=== PATIENT | female | born 1950 | race Caucasian/White ===

== ENCOUNTER 2019-02-23 15:45 | Inpatient (IN) | payer MEDICARE ==
[~2019-02-23] VITALS: Ht 157.4 cm; Wt 61.7 kg
--- NOTE | ~2019-02-23 | EKG ---
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
--- NOTE | ~2019-02-23 | EKG ---
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
--- NOTE | ~2019-02-23 | EKG ---
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
[~2019-02-23 15:45] MED LIST: NITROFURANTOIN100 M9 PO
[2019-02-23 15:47] VITALS: BP 143/61
--- NOTE | 2019-02-23 15:59 | NUR ---
PATIENT DENIES ANY WOUNDS ON BODY A&O4.
[2019-02-23 16:22] VITALS: BP 132/42
[2019-02-23 16:24] LABS: BASO % 0.2 % (0.0-1.0); HEMATOCRIT 39.7 % (37.0-47.0); HEMOGLOBIN 12.8 g/dl (12.0-16.0); LYMPH # 0.5 10*3/uL (1.3-4.4); LYMPH % 8.3 % (27.0-41.0); MEAN CELL VOLUME 86.1 fl (81.0-99.0); MEAN CORPUSCULAR HGB 27.8 pg (27.0-31.0); MEAN CORPUSCULAR HGB CONC 32.2 g/dl (33.0-37.0); MEAN PLATELET VOLUME 10.4 fl (9.6-12.3); MONO # 0.6 10*3/uL (0.1-1.0); MONO % 9.7 % (3.0-9.0); NEUT # 4.7 10*3/uL (2.3-7.9); NEUT % 81.5 % (47.0-73.0); PLATELET COUNT AUTOMATED 147 10*3/uL (130-400); RED BLOOD COUNT 4.61 10*6/uL (4.10-5.10); RED CELL DISTRI WIDTH 13.5 % (0-14.5); WHITE BLOOD COUNT 5.8 10*3/uL (4.8-10.8)
[2019-02-23 16:34] LABS: BILIRUBIN 3+ (NEGATIVE); BLOOD NEGATIVE (NEGATIVE); CLARITY CLOUDY (CLEAR); COLOR ORANGE (YELLOW); GLUCOSE TRACE (NEGATIVE); KETONE TRACE (NEGATIVE); NITRITE POSITIVE (NEGATIVE); PH 5.5 (5.0-9.0); SPECIFIC GRAVITY 1.025 (1.005-1.030)
[2019-02-23 16:35] LABS: ACT PARTIAL THROMBO TIME 38.3 SECONDS (20.0-32.1)
[2019-02-23 16:37] LABS: LEUKO ESTERASE TRACE (NEGATIVE)
[2019-02-23 16:46] LABS: ALBUMIN 3.1 gm/dl (3.1-4.5); ALKALINE PHOSPHATASE 316 U/L (45-117); BUN 20 mg/dl (7-24); CHLORIDE 104 mmol/L (98-107); CREATININE 1.14 mg/dL (0.55-1.02); POTASSIUM 3.4 mmol/L (3.5-5.1); SGOT/AST 127 IU/L (3-35); SGPT/ALT 213 U/L (12-78); SODIUM 138 mmol/L (136-145); TOTAL PROTEIN 6.9 gm/dL (6.4-8.2)
[2019-02-23 16:48] LABS: TROPONIN I < 0.015 ng/ml (<0.045)
[2019-02-23 17:30] LABS: BACTERIA 3+; WBC 31-40 wbc/hpf (0-5)
[2019-02-23 17:31] LABS: EPITHELIAL CELLS 15-20
[2019-02-23 17:52] VITALS: BP 144/66
[2019-02-23 18:15] VITALS: BP 143/77
--- NOTE | 2019-02-23 18:22 | NUR ---
PATIENT REPORT GIVEN TO AMINTA CARRASCO AT BEDSIDE. NO CHANGE IN PATIENT CONDITION.
[2019-02-23] MEDS ORDERED: SERTRALINE HYD100 MG PO (18:23)
[2019-02-23] MEDS ORDERED: MOTRIN IB200 M1 PO (18:24)
[2019-02-23] MEDS ORDERED: MONTELUKAST SOD10 MG PO (18:25)
[2019-02-23] MEDS ORDERED: CETIRIZINE HYDR10 MG PO (18:25)
--- NOTE | 2019-02-23 18:25 | NUR ---
A 68, admitted to 5E, under the services of YANETH Camargo DO with a diagnosis of ELEVATED BILIRUBIN. Chief complaint is COUGH, NECK PAIN. Patient arrived via stretcher from ER. Monitor applied. Initial assessment completed. Vital signs taken and recorded. See assessment for past medical history, medications and allergies. Patient and/or family oriented to unit. [facility] visitation policy reviewed. Clothing/patient valuable form completed. AMINTA CLANCY
--- NOTE | 2019-02-23 18:35 | NUR ---
DR. DICKERSON AWARE THAT PATIENT HAS ARRIVED IN ROOM AND THAT HOME MEDICTAIONS ARE UPDATED
--- NOTE | 2019-02-23 19:12 | NUR ---
PT COMPLAIN OF NECK PAIN, TYLENOL GIVEN
--- NOTE | 2019-02-23 19:52 | NUR ---
PATIENT MEDICATED FOR C/O NAUSEA. WILL MONITOR
[2019-02-23 20:00] VITALS: BP 153/61
--- NOTE | 2019-02-23 20:52 | NUR ---
ZOFRAN EFFECTIVE FOR NAUSEA
--- NOTE | 2019-02-23 23:12 | NUR ---
PATIENT MEDICATED WITH TYLENOL FOR C/O HEADACHE. WILL MONITOR
[2019-02-24] VITALS: BP 132/56
--- NOTE | 2019-02-24 00:12 | NUR ---
TYLENOL APPEARS EFFECTIVE. RESTING QUIETLY IN BED, EYES CLOSED. CALL LIGHT WITHIN REACH
[2019-02-24 06:19] LABS: BASO % 0.1 % (0.0-1.0); EOS % 0.1 % (1.0-4.0); HEMATOCRIT 35.6 % (37.0-47.0); HEMOGLOBIN 11.6 g/dl (12.0-16.0); LYMPH # 0.6 10*3/uL (1.3-4.4); LYMPH % 8.1 % (27.0-41.0); MEAN CELL VOLUME 86.2 fl (81.0-99.0); MEAN CORPUSCULAR HGB 28.1 pg (27.0-31.0); MEAN CORPUSCULAR HGB CONC 32.6 g/dl (33.0-37.0); MEAN PLATELET VOLUME 10.6 fl (9.6-12.3); MONO # 0.6 10*3/uL (0.1-1.0); MONO % 8.2 % (3.0-9.0); NEUT % 82.8 % (47.0-73.0); PLATELET COUNT AUTOMATED 143 10*3/uL (130-400); RED BLOOD COUNT 4.13 10*6/uL (4.10-5.10); RED CELL DISTRI WIDTH 13.7 % (0-14.5); WHITE BLOOD COUNT 7.2 10*3/uL (4.8-10.8)
[2019-02-24 06:54] LABS: CHLORIDE 107 mmol/L (98-107); SODIUM 139 mmol/L (136-145)
[2019-02-24 07:06] LABS: BUN 12 mg/dl (7-24); CHOLESTEROL 139 mg/dL (<200); CREATININE 0.63 mg/dL (0.55-1.02); HDL CHOLESTEROL 18 mg/dl (40-60); LDL CHOLESTEROL 96 mg/dL (9-159); PHOSPHOROUS 2.4 mg/dL (2.5-4.9); TRIGLYCERIDES 125 mg/dl (<150); VLDL CHOLESTEROL 25 mg/dL (6-40)
--- NOTE | 2019-02-24 07:10 | NUR ---
ARRIVED ON SHIFT, INTRODUCED TO PATIENT, BEDSIDE REPORT RECIEVED, WHITE BOARD UPDATED, NO CONCERNS VOICED AT THIS TIME.
[2019-02-24 08:00] VITALS: BP 130/78
--- NOTE | 2019-02-24 09:00 | NUR ---
PHYSICAL THERAPY Patient evaluated on 5, full evaluation to follow. Continue with PT as per plan of care with fall and acute debility precautions. Home with home health RN prn. PAtient is moderate complexity via chart review, tests and evaluation: [id number]. Thank you for this referral. Seema Dennis,PT
--- NOTE | 2019-02-24 09:05 | NUR ---
Occupational Therapy evaluation completed on 5 with full eval to follow. Precautions include IV UE, c/o headache,neck ache and body aches, low complexity level. Patient is able to peform self care independently and is walking to the bathroom independently. Recommend no further OT at this time and return home w/family upon d/c. Thank you. Dayanna Gomez OTR/L
--- NOTE | 2019-02-24 10:39 | NUR ---
MEDICATED WITH TYLENOL FOR C/O OF NECK PAIN RATES 04/12, WHITE BOARD UPDATED WILL CONTINUE TO MONITOR.
[2019-02-24 12:00] VITALS: BP 128/76
[2019-02-24 14:00] VITALS: BP 122/50
--- NOTE | 2019-02-24 15:11 | NUR ---
Line Patrolman in to talk to patient. Patient states lives at HOME with FAMILY. There are FEW steps in the home. Physician: TIMOTEO Pharmacy: [facility] [place] [facility]: NONE Patient's level of ADLs: INDEPENDENT Patient has working utilities: YES DME: NONE Follow-up physician's appointment after d/c: WILL BE MADE BY HOSPITALIST NURSE DIRECTOR ON DISCHARGE Does patient want to access PORTAL?: NO Discharge plan PT LIVES AT HOME WITH HER FAMILY AND IS INDEPENDENT IN HER CARE. DENIES ANY NEEDS ON DISCHARGE. WILL CONTINUE TO FOLLOW. STATES SHE WILL HAVE A RIDE HOME. AMBER MELVIN
[2019-02-24 16:00] VITALS: BP 110/59
--- NOTE | 2019-02-24 19:15 | NUR ---
REPROT OBTAINED. PATIENT VOICED NO COMPLAINTS. CALL LIGHT LEFT WITHIN REACH
[2019-02-24 20:00] VITALS: BP 113/50
[2019-02-25] VITALS: BP 134/48
--- NOTE | 2019-02-25 02:00 | NUR ---
PATIENT SLEEPING, EYES CLOSED. NO DISTRESS. CALL LIGHT WITHI NREACH
--- NOTE | 2019-02-25 03:00 | NUR ---
PATIENT SLEEPING, EYES CLOSED. NO DISTRESS NOTED. CALL LIGHT WITHIN REACH
[2019-02-25 06:35] LABS: HEMATOCRIT 34.4 % (37.0-47.0); HEMOGLOBIN 11.2 g/dl (12.0-16.0); MEAN CORPUSCULAR HGB CONC 32.6 g/dl (33.0-37.0); MEAN PLATELET VOLUME 9.9 fl (9.6-12.3); RED CELL DISTRI WIDTH 14.1 % (0-14.5); WHITE BLOOD COUNT 4.3 10*3/uL (4.8-10.8)
[2019-02-25 06:39] LABS: PLATELET COUNT AUTOMATED 197 10*3/uL (130-400)
[2019-02-25 06:55] LABS: ALBUMIN 2.4 gm/dl (3.1-4.5); ALKALINE PHOSPHATASE 334 U/L (45-117); BUN 19 mg/dl (7-24); CHLORIDE 107 mmol/L (98-107); CREATININE 0.67 mg/dL (0.55-1.02); POTASSIUM 3.5 mmol/L (3.5-5.1); SGOT/AST 136 IU/L (3-35); SGPT/ALT 173 U/L (12-78); SODIUM 141 mmol/L (136-145); TOTAL PROTEIN 5.9 gm/dL (6.4-8.2)
--- NOTE | 2019-02-25 07:00 | NUR ---
ARRIVED ON SHIFT, PATIENT REQUESTED NOT TO BE AWAKENED IN AM, REPORT RECIEVED FROM OFFGOING NURSE, PATIENT RESING QUIETLY WITH EYES CLOSED, WHITE BOARD UPDATED.
[2019-02-25 07:24] LABS: ATYPICAL LYMPHS 3 % (0-0); BURR CELLS FEW; PLATELET SUFFICIENCY NORMAL (NORMAL); TOTAL CELLS COUNTED 100 #CELLS
--- NOTE | 2019-02-25 07:41 | NUR ---
Shift chart check completed.
[2019-02-25 07:49] VITALS: BP 110/70; BP 132/70
--- NOTE | 2019-02-25 08:34 | NUR ---
PATIENT C/O OF NAUSEA AND NECK PAIN MEDICATED WITH TYLENOL AND ZOFRAN ORDERED, WHITE BOARD UPDATED.
--- NOTE | 2019-02-25 09:34 | NUR ---
PATIENT REPORTS NO NAUSEA, AND PAIN NOW A 2, GOOD EFFECT FROM ZOFRAN AND TYLENOL
--- NOTE | 2019-02-25 09:56 | NUR ---
PYRIDIUM GIVEN FOR BURNING OF URINATION, EDUCTAED TO CHANGE IN COLOR OF URINE.
--- NOTE | 2019-02-25 10:30 | NUR ---
PHYSICAL THERAPY Patient seen this am 1:1 for therapy visit and was resting supine in bed upon therapist arrival. Patient reports only mild aches and pains this morning, stating " I'm starting to feel a little better". Patient transfers supine to stand SBA and ambulates 100'x 2, SBA, demonstrating increased B arm swing. Patient resting HR 85 bpm and also navigated up/down 10 steps, single handrail support, CGA, with single step sequence. Patient returned to EOB sit with mild fatigue and HR remaining WFL's throughout entire treatment time. Patient remained with call light, tray table and telephone. Will continue per POC as tolerated, total treatment time 18 minutes. Kemar Luis, POWER REACTOR SUPERVISOR
[2019-02-25 12:17] VITALS: BP 140/64
--- NOTE | 2019-02-25 12:52 | NUR ---
PT CONTINUES TO DENY NEEDS AT HOME. WILL CONTINUE TO FOLLOW.
[2019-02-25 16:00] VITALS: BP 124/60
--- NOTE | 2019-02-25 18:57 | NUR ---
SANG C/O OF KYRA GIVEN 650 MG TYLENOL, WHITE BOARD UPDATED.
[2019-02-25 20:00] VITALS: BP 125/57
[2019-02-26] VITALS: BP 129/88
--- NOTE | 2019-02-26 02:57 | NUR ---
PATIENT SLEEPING, EYES CLSOED. NO DISTRESS NOTED, CALL LIGHT WITHIN REACH
[2019-02-26 07:50] VITALS: BP 138/72
--- NOTE | 2019-02-26 08:46 | NUR ---
MS C/O OF HEADACHE AND NAUSEA, PRN TYLENOL AND ZOFRAN GIVEN MS ORDER
--- NOTE | 2019-02-26 10:36 | NUR ---
PT RESTING IN BED WITH EYES CLOSED NO FURTHER COMPLAINTS AT THIS TIME
[2019-02-26 11:05] VITALS: BP 128/68
[2019-02-26] MEDS ORDERED: PROTONIX20 MG PO (11:07)
[2019-02-26] MEDS ORDERED: ZOFRAN4 MG PO (11:07)
--- NOTE | 2019-02-26 11:50 | NUR ---
Discharge instructions reviewed with patient/family. Patient receptive and verbalizes understanding. Follow-up care arranged. Written instructions given to patient/family. OBIE MONTOYA
--- NOTE | 2019-02-27 10:54 | NUR ---
PHYSICAL THERAPY CO-SIGN I approve of the Phyical Therapy notes written above. ELIS CALZADA
== END 2019-02-26 11:50 | disposition home or self-care (01) | DRG 865 ==
LOC: ED 15:45 → EDHOLD 17:41 → 5E 17:41
PROVIDERS: Emergency Medicine; Internal Medicine; Student in an Organized Health Care Education/Training Program; ADMIT Emergency Medicine
DX: B34.9 Viral infection, unspecified (principal); N17.0 Acute kidney failure with tubular necrosis; R17 Unspecified jaundice; N39.0 Urinary tract infection, site not specified; E83.41 Hypermagnesemia; R74.0 Nonspecific elevation of levels of transaminase and lactic acid dehydrogenase [LDH]; R51 Headache; M54.2 Cervicalgia; E87.6 Hypokalemia; R10.13 Epigastric pain; R00.0 Tachycardia, unspecified; E83.39 Other disorders of phosphorus metabolism; R73.9 Hyperglycemia, unspecified; R80.9 Proteinuria, unspecified; J30.2 Other seasonal allergic rhinitis; K21.9 Gastro-esophageal reflux disease without esophagitis; R05 Cough; Z87.440 Personal history of urinary (tract) infections; Z88.2 Allergy status to sulfonamides; Z90.710 Acquired absence of both cervix and uterus; Z80.42 Family history of malignant neoplasm of prostate; Z82.61 Family history of arthritis; Z79.899 Other long term (current) drug therapy; Z88.0 Allergy status to penicillin

== ENCOUNTER 2022-03-23 22:46 | Emergency (ER) | payer MEDICARE ==
[~2022-03-23] VITALS: Ht 162.5 cm; Wt 73.9 kg
[~2022-03-23 22:46] MED LIST changes: +CETIRIZINE HYDR10 MG PO; +MONTELUKAST SOD10 MG PO; +MOTRIN IB200 M1 PO; +PROTONIX20 MG PO; +SERTRALINE HYD100 MG PO; +ZOFRAN4 MG PO
[2022-03-23] MEDS ORDERED: LIPITOR20 MG PO (23:35)
[2022-03-23] MEDS ORDERED: NATURE'S BLEND F1 MG PO (23:35)
[2022-03-23] MEDS ORDERED: DESVENLAFAXINE100 M3 PO (23:35)
== END 2022-03-24 03:15 | disposition home or self-care (01) ==
LOC: ED 22:46
DX: S22.040A Wedge compression fracture of fourth thoracic vertebra, initial encounter for closed fracture (principal); S20.211A Contusion of right front wall of thorax, initial encounter; S50.12XA Contusion of left forearm, initial encounter; M25.532 Pain in left wrist; Z90.89 Acquired absence of other organs; Z98.890 Other specified postprocedural states; Z88.8 Allergy status to other drugs, medicaments and biological substances; Z79.899 Other long term (current) drug therapy; W10.8XXA Fall (on) (from) other stairs and steps, initial encounter; Y93.89 Activity, other specified; Y92.89 Other specified places as the place of occurrence of the external cause; Y99.8 Other external cause status

== ENCOUNTER → 2023-04-11 | Outpatient (CLI) | payer MEDICARE ==
[~2023-04-11] MED LIST changes: +DESVENLAFAXINE100 M3 PO; +LIPITOR20 MG PO; +NATURE'S BLEND F1 MG PO
== END | disposition home or self-care (01) ==
LOC: CARD 03-21 10:30
PROVIDERS: ATTEND Internal Medicine Cardiovascular Disease
DX: I34.0 Nonrheumatic mitral (valve) insufficiency (principal)